=== PATIENT | female | born 1955 | race Caucasian/White ===

== ENCOUNTER 2017-11-20 21:07 | Emergency (ER) | payer BC ==
[~2017-11-20] VITALS: Ht 152.4 cm; Wt 79.0 kg
[~2017-11-20 21:07] MED LIST: NO HOME MEDS
[2017-11-20 21:12] VITALS: BP 135/84
[2017-11-20] MEDS ORDERED: acetaminophen 325mg tablet PO ONE (21:40)
== END 2017-11-20 23:29 | disposition home or self-care (01) ==
LOC: ER 21:07
DX: M25.561 Pain in right knee (principal); X50.1XXA Overexertion from prolonged static or awkward postures, initial encounter; Y93.89 Activity, other specified; Y92.89 Other specified places as the place of occurrence of the external cause; Y99.9 Unspecified external cause status
CPT/HCPCS: 73564; 93971; 99284

== ENCOUNTER 2021-06-12 11:01 | Day surgery (SDC) | payer MEDICARE, BC, MEDICAID ==
[~2021-06-12] VITALS: Ht 152.4 cm; Wt 68.9 kg
[2021-06-12 11:15] VITALS: BP 124/75
[2021-06-12] MEDS ORDERED: normal saline 1000ml 1,000 ML IV PRN (11:30)
[2021-06-12] MEDS ORDERED: ceFAZolin/D5W- 1GM premix 50 ML IV ONE (11:30)
[2021-06-12] MEDS ORDERED: FOLI1TAB27 PO (11:36)
[2021-06-12] MEDS ORDERED: DULO60CA65 PO (11:36)
[2021-06-12] MEDS ORDERED: Losartan Potassium PO (11:39)
[2021-06-12] MEDS ORDERED: heparin sodium, porcine/PF 100unit/ml 5ML syringe ONE (14:14)
[2021-06-12] MEDS ORDERED: midazolam 1 mg/ML 2ml injection ONE (14:14)
[2021-06-12] MEDS ORDERED: fentaNYL/PF 50MCG/1 ML 2ML syringe ONE (14:14)
[2021-06-12] MEDS ORDERED: normal saline 1000ml 1,000 ML IV SCH (15:10)
[2021-06-12 15:12] VITALS: BP 94/58
[2021-06-12 15:15] VITALS: BP 96/58
[2021-06-12 15:30] VITALS: BP 97/60
[2021-06-12 15:45] VITALS: BP 103/59
[2021-06-12 15:54] VITALS: BP 102/48
== END 2021-06-12 16:05 | disposition home or self-care (01) ==
LOC: SSTAY O 11:01
PROVIDERS: ATTEND Radiology Vascular & Interventional Radiology
DX: C34.31 Malignant neoplasm of lower lobe, right bronchus or lung (principal); Z79.899 Other long term (current) drug therapy
CPT/HCPCS: 36561; 76937; 77001; 99152; 99153; C1769; C1788; C1894; J1642; J2250; J3010; J7030

== ENCOUNTER 2022-03-19 06:34 | Day surgery (SDC) | payer MEDICARE, BC, MEDICAID ==
[2022-03-19] VITALS (7 sets, daily range): BP systolic 104–143; BP diastolic 55–97
[~2022-03-19] VITALS: Ht 152.4 cm; Wt 70.8 kg
[~2022-03-19 06:34] MED LIST changes: +DULO60CA65 PO; +FOLI1TAB27 PO; +Losartan Potassium PO; -NO HOME MEDS
[2022-03-19] MEDS ORDERED: albumin 25% 100mL bottle x 1 IV PRN (06:55)
[2022-03-19] MEDS ORDERED: MSC15T PO (07:12)
[2022-03-19] MEDS ORDERED: MULT-1249 PO (07:12)
[2022-03-19] MEDS ORDERED: FLUT1BLS4 INH (07:12)
[2022-03-19] MEDS ORDERED: FERR325T28 PO (07:12)
[2022-03-19] MEDS ORDERED: LORA2ORA5 PO (07:12)
[2022-03-19] MEDS ORDERED: ONDA8TAB13 PO (07:12)
[2022-03-19] MEDS ORDERED: CYAN1TAB41 PO (07:12)
[2022-03-19] MEDS ORDERED: LIDOcaine 1% 30ml preserv. free vial SQ STA ×2 (07:12→07:24)
== END 2022-03-19 10:21 | disposition home or self-care (01) ==
LOC: SSTAY O 06:34
PROVIDERS: ATTEND Radiology Diagnostic Radiology
DX: C34.90 Malignant neoplasm of unspecified part of unspecified bronchus or lung (principal); C79.31 Secondary malignant neoplasm of brain; J91.8 Pleural effusion in other conditions classified elsewhere; F32.9 Major depressive disorder, single episode, unspecified; D50.9 Iron deficiency anemia, unspecified; Z79.899 Other long term (current) drug therapy; Z98.890 Other specified postprocedural states
CPT/HCPCS: 32555